=== PATIENT | female | born 1980 | race Caucasian/White ===

== ENCOUNTER 2018-03-06 10:17 | Outpatient (CLI) | payer OTHER ==
[~2018-03-06] VITALS: Ht 170.2 cm; Wt 93.1 kg
[~2018-03-06 10:17] MED LIST: DEXL30CA2 PO; HYDR-3240 PO; IBUP-1222 PO; PREN-59 PO
[2018-03-06 10:30] VITALS: BP 131/87
== END 2018-03-06 11:08 | disposition home or self-care (01) ==
LOC: LDOP 10:17
PROVIDERS: ATTEND Obstetrics & Gynecology
DX: O24.419 Gestational diabetes mellitus in pregnancy, unspecified control (principal); O26.893 Other specified pregnancy related conditions, third trimester; R03.0 Elevated blood-pressure reading, without diagnosis of hypertension; Z3A.38 38 weeks gestation of pregnancy
CPT/HCPCS: 59025; 99211; G0463

== ENCOUNTER 2018-03-11 07:06 | Inpatient (IN) | payer OTHER ==
[~2018-03-11] VITALS: Ht 167.6 cm; Wt 95.0 kg
[2018-03-14] MEDS ORDERED: OXYTOCIN 30U/ 0.9% NaCL 500ML 500 ML IV PRN (05:06)
[2018-03-14] MEDS ORDERED: OXYTOCIN 30U/ 0.9% NaCL 500ML 500 ML IV ONE (05:06)
[2018-03-14] MEDS ORDERED: D5%-LACTATED RINGERS 1,000 ML IV SCH (05:06)
[2018-03-14] MEDS ORDERED: OXYTOCIN 30U/ 0.9% NaCL 500ML 500 ML ONE (05:12)
[2018-03-14] MEDS ORDERED: MISOPROSTOL 25 MCG TABLET ONE (05:12)
[2018-03-14] MEDS ORDERED: NEWBORN KIT ONE (05:12)
[2018-03-14] MEDS ORDERED: CALCIUM CARBONATE 500 MG TAB.CHEW PO PRN (05:30)
[2018-03-14] MEDS ORDERED: MISOPROSTOL 25 MCG TABLET VG PRN (05:30)
[2018-03-14] MEDS ORDERED: TERBUTALINE 1 MG/ML, 1ML IVPush PRN (05:30)
[2018-03-14] MEDS ORDERED: FENTANYL PF 100 MCG/2ML IVPush PRN (05:30)
[2018-03-14] MEDS ORDERED: FENTANYL PF 100 MCG/2ML IV PRN (05:30)
[2018-03-14] MEDS: LACTATED RINGERS 1,000 ML IV SCH ×5 (05:40→21:06)
[2018-03-14 05:59] LABS: BASOPHILS # (AUTO) 0.04 x10^3/uL (0-0.1); BASOPHILS % (AUTO) 0 % (0-1); EOSINOPHILS # (AUTO) 0.15 x10^3/uL (0-0.4); EOSINOPHILS % (AUTO) 2 % (1-7); LYMPHOCYTES # (AUTO) 2.56 x10^3/uL (1-3.4); LYMPHOCYTES % (AUTO) 28 % (22-44); MD NO; MEAN CORPUSCULAR HEMOGLOBIN 28.7 pg (27.0-34.8); MEAN CORPUSCULAR HGB CONC 33.5 g/dL (32.4-35.8); MEAN CORPUSCULAR VOLUME 85.7 fL (80-100); MEAN PLATELET VOLUME 7.9 fL (7.4-10.4); MONOCYTES # (AUTO) 0.57 x10^3/uL (0.2-0.8); MONOCYTES % (AUTO) 6 % (2-9); NEUTROPHILS % (AUTO) 64 % (42-75); PLATELET COUNT 257 x10^3/uL (130-400); RED BLOOD COUNT 4.53 x10^6/uL (3.82-5.3); RED CELL DISTRIBUTION WIDTH 14.3 % (9.6-15.2)
[2018-03-14] MEDS ORDERED: BUPIVACAINE/PF 0.25% ONE (12:30)
[2018-03-14] MEDS ORDERED: FENTANYL/BUPIV./NS/PF 250 ML EPIDCONT ONE (12:30)
[2018-03-14] MEDS ORDERED: LIDOCAINE/PF 1.5%-EPI 1:200K, 30ML ONE (12:36)
[2018-03-14] MEDS ORDERED: EPHEDRINE 50 MG/ML, 1ML ONE (12:36)
[2018-03-14] MEDS ORDERED: ONDANSETRON 2MG/ML, 2ML ONE ×2 (13:12→20:42)
[2018-03-14] MEDS: ONDANSETRON 2MG/ML, 2ML IVPush PRN ×2 (13:16→20:45)
[2018-03-14] MEDS ORDERED: FENTANYL/BUPIV./NS/PF 250 ML EPIDCONT SCH (13:23)
[2018-03-14] MEDS ORDERED: EPHEDRINE 50 MG/ML, 1ML IVPush PRN (13:30)
[2018-03-14] MEDS ORDERED: EPHEDRINE 50 MG/ML, 1ML IVPush ONE (13:30)
[2018-03-14] MEDS ORDERED: ONDANSETRON 2MG/ML, 2ML IVPush PRN (13:30)
[2018-03-14] MEDS ORDERED: NALOXONE 0.4 MG/ML, 1ML IVPush PRN (13:30)
[2018-03-14] MEDS ORDERED: DIPHENHYDRAMINE 50 MG/ML, 1ML IVPush PRN (13:30)
[2018-03-14] MEDS ORDERED: LACTATED RINGERS 1,000 ML IVBOLUS PRN (13:30)
[2018-03-14] MEDS ORDERED: TERBUTALINE 1 MG/ML, 1ML ONE (14:00)
[2018-03-14] MEDS ORDERED: LACTATED RINGERS 1,000 ML INTUTE PRN (19:30)
[2018-03-14] MEDS ORDERED: FENTANYL PF 100 MCG/2ML ONE ×2 (19:34→21:32)
[2018-03-14] MEDS: OXYTOCIN 30U/ 0.9% NaCL 500ML 500 ML IV SCH (23:37)
[2018-03-15] MEDS ORDERED: OXYcodone IR 5MG TABLET PO PRN
[2018-03-15] MEDS ORDERED: ONDANSETRON 2MG/ML, 2ML IV PRN
[2018-03-15] MEDS ORDERED: MISOPROSTOL 200 MCG TABLET PR PRN
[2018-03-15] MEDS ORDERED: OXYcodone/APAP 5/325MG TABLET PO PRN
[2018-03-15] MEDS ORDERED: ACETAMINOPHEN 325 MG TABLET PO PRN
[2018-03-15 01:20] VITALS: BP 135/81
[2018-03-15] MEDS: LACTATED RINGERS 1,000 ML IV SCH ×3 (03:37→05:32)
[2018-03-15] MEDS: OXYTOCIN 30U/ 0.9% NaCL 500ML 500 ML IV SCH (03:38)
[2018-03-15 05:15] VITALS: BP 127/82
[2018-03-15] MEDS: IBUPROFEN 600 MG TABLET PO PRN ×2 (05:22→12:13)
[2018-03-15 07:52] LABS: BASOPHILS # (AUTO) 0.06 x10^3/uL (0-0.1); BASOPHILS % (AUTO) 0 % (0-1); EOSINOPHILS # (AUTO) 0.05 x10^3/uL (0-0.4); EOSINOPHILS % (AUTO) 0 % (1-7); LYMPHOCYTES # (AUTO) 2.13 x10^3/uL (1-3.4); LYMPHOCYTES % (AUTO) 16 % (22-44); MD NO; MEAN CORPUSCULAR HEMOGLOBIN 28.2 pg (27.0-34.8); MEAN CORPUSCULAR HGB CONC 33.2 g/dL (32.4-35.8); MEAN CORPUSCULAR VOLUME 84.8 fL (80-100); MEAN PLATELET VOLUME 8.2 fL (7.4-10.4); MONOCYTES # (AUTO) 0.66 x10^3/uL (0.2-0.8); MONOCYTES % (AUTO) 5 % (2-9); NEUTROPHILS # (AUTO) 10.71 x10^3/uL (1.8-6.8); NEUTROPHILS % (AUTO) 79 % (42-75); PLATELET COUNT 238 x10^3/uL (130-400); RED BLOOD COUNT 4.14 x10^6/uL (3.82-5.3); RED CELL DISTRIBUTION WIDTH 14.7 % (9.6-15.2)
[2018-03-15 08:00] VITALS: BP 120/75
[2018-03-15] MEDS: PRENATAL VIT/IRON/FA 1 EACH TABLET PO SCH (09:00)
[2018-03-15] MEDS: DOCUSATE 100 MG CAPSULE PO PRN (11:15)
[2018-03-15 12:54] VITALS: BP 129/89
[2018-03-15 20:00] VITALS: BP 123/77
[2018-03-16] MEDS: IBUPROFEN 600 MG TABLET PO PRN ×2 (00:42→08:09)
[2018-03-16 08:05] VITALS: BP 123/85
[2018-03-16] MEDS: DOCUSATE 100 MG CAPSULE PO PRN (08:09)
[2018-03-16] MEDS: PRENATAL VIT/IRON/FA 1 EACH TABLET PO SCH (08:09)
[2018-03-16] MEDS ORDERED: IBUP-1222 PO (09:36)
== END 2018-03-16 10:35 | disposition home or self-care (01) | DRG 775 ==
LOC: LDIP 03-14 05:05 → 2NW 03-15 01:07
PROVIDERS: ADMIT Obstetrics & Gynecology; ATTEND Obstetrics & Gynecology
PROC: 10E0XZZ Delivery of Products of Conception, External Approach (ICD-10-PCS; principal; 2018-03-14)
PROC: 0HQ9XZZ Repair Perineum Skin, External Approach (ICD-10-PCS; 2018-03-14)
PROC: 00HU33Z Insertion of Infusion Device into Spinal Canal, Percutaneous Approach (ICD-10-PCS; 2018-03-14)
PROC: 3E0R3BZ Introduction of Anesthetic Agent into Spinal Canal, Percutaneous Approach (ICD-10-PCS; 2018-03-14)
PROC: 10907ZC Drainage of Amniotic Fluid, Therapeutic from Products of Conception, Via Natural or Artificial Opening (ICD-10-PCS; 2018-03-14)
PROC: 3E033VJ Introduction of Other Hormone into Peripheral Vein, Percutaneous Approach (ICD-10-PCS; 2018-03-14)
DX: O69.81X0 Labor and delivery complicated by cord around neck, without compression, not applicable or unspecified (principal); Z37.0 Single live birth; O70.0 First degree perineal laceration during delivery; Z3A.39 39 weeks gestation of pregnancy
CPT/HCPCS: 36415; 85025; 86850; 86900; J2405; J3490; J2590; J3010; J7120; J7121

== ENCOUNTER → 2018-06-13 | Outpatient (CLI) | payer OTHER | END | disposition home or self-care (01) | LOC: CFH 08:56 | PROVIDERS: ATTEND Student in an Organized Health Care Education/Training Program | DX: N20.0 Calculus of kidney (principal); N13.30 Unspecified hydronephrosis | CPT/HCPCS: 74176 ==